=== PATIENT | female | born 2005 | race Two or more races ===

== ENCOUNTER 2023-10-29 22:25 | Emergency (ER) | payer BC ==
[~2023-10-29] VITALS: Ht 177.8 cm; Wt 59.0 kg
[2023-10-29 22:42] VITALS: TEMP 98.7
[2023-10-29 23:08] VITALS: BP 123/74; O2SAT 100
== END 2023-10-29 23:08 | disposition home or self-care (01) ==
LOC: ER 22:29
DX: T78.1XXA Other adverse food reactions, not elsewhere classified, initial encounter (principal); R06.02 Shortness of breath; F17.200 Nicotine dependence, unspecified, uncomplicated; X58.XXXA Exposure to other specified factors, initial encounter